=== PATIENT | female | born 1960 | race Caucasian/White ===

== ENCOUNTER → 2020-12-27 | Outpatient (CLI) | payer MEDICARE ==
[~2020-12-27] MED LIST: KLONOPIN TAB 00.5 MG PO; LIORESAL TAB 1010 MG PO; LIPITOR TAB 2020 MG PO
== END ==
LOC: KOH-I 12:55
DX: Z12.2 Encounter for screening for malignant neoplasm of respiratory organs (principal); R91.8 Other nonspecific abnormal finding of lung field; Z87.891 Personal history of nicotine dependence
CPT/HCPCS: 71271

== ENCOUNTER → 2021-07-25 | Outpatient (CLI) | payer MEDICARE | LOC: LAB 09:06 | DX: Z01.812 Encounter for preprocedural laboratory examination (principal); R10.13 Epigastric pain | CPT/HCPCS: 36415; 82565; 84520 ==

== ENCOUNTER → 2022-03-06 | Outpatient (CLI) | payer MEDICARE | LOC: KOH-I 13:50 | DX: F17.210 Nicotine dependence, cigarettes, uncomplicated (principal); R91.1 Solitary pulmonary nodule | CPT/HCPCS: 71271 ==